=== PATIENT | male | born 1960 | race African-American/Black ===

== ENCOUNTER 2018-02-14 06:31 | Day surgery (SDC) | payer BC ==
[2018-02-13 13:35] VITALS: BMI 41.6
[2018-02-14] MEDS ORDERED: ROCURONIUM BROMIDE 50 MG/5 ML VIAL ONE (07:07)
[2018-02-14] MEDS ORDERED: DEXAMETHASONE SOD PHOSPHATE 4 MG/1 ML VIAL ONE (07:07)
[2018-02-14] MEDS ORDERED: LIDOCAINE HCL/PF 2% SDV 5ML VIAL ONE (07:07)
[2018-02-14] MEDS ORDERED: PROPOFOL 20 ML ONE (07:07)
[2018-02-14] MEDS ORDERED: SUCCINYLCHOLINE CHLORIDE 200 MG/10 ML VIAL ONE (07:07)
[2018-02-14] MEDS ORDERED: DEXAMETHASONE SOD PHOSPHATE/PF 10 MG/ML SDV ONE (07:28)
[2018-02-14] MEDS ORDERED: BUPIVACAINE HCL/PF 0.5% (5MG/ML) 10 ML VIAL ONE ×2 (07:28→07:29)
[2018-02-14] MEDS ORDERED: MIDAZOLAM HCL 2 MG/2 ML SINGLE DOSE VIAL ONE ×3 (07:30→08:39)
--- NOTE | 2018-02-14 08:22 | HP ---
Satellite [facility] - Chief Complaint Chief Complaint: left shoulder pain, weakness History of Present Illness: left shoulder impingement, RTC tear History Source: Patient Limitations to Obtaining History: No Limitations - Past Medical History Allergies/Adverse Reactions: Allergies Allergy/AdvReac Type Severity Reaction Status Date / Time shellfish derived Allergy Intermediate Rash Verified 02/14/18 06:51 Iodinated Contrast- Oral and Allergy Verified 02/14/18 06:51 IV Dye [Iodinated Contrast Media - IV Dye] - Current Medications Current Medications: Home Medications Medication Instructions Recorded Aspirin [Aspirin EC] 81 mg PO DAILY 02/13/18 Ezetimibe [Zetia] 10 mg PO HS 02/13/18 Famotidine [Pepcid] 40 mg PO DAILY 02/13/18 Hydrochlorothiazide [Hctz -] 12.5 mg PO DAILY 02/13/18 Metronidazole 250 mg PO DAILY 02/13/18 Nebivolol HCl [Bystolic] 10 mg PO DAILY 02/13/18 Olmesartan Medoxomil [Benicar] 20 mg PO DAILY 02/13/18 Rosuvastatin [Crestor -] 40 mg PO HS 02/13/18 Tamsulosin HCl [Flomax] 0.4 mg PO HS 02/13/18 Satellite Physical Exam - Physical Examination Vital Signs: Vital Signs Period Temp Pulse Resp BP Sys/Jensen Pulse Ox Last 24 Hr 98.2 F 77 18 127/77 95 General Appearance: Well Nourished ENT: Clear Lung: Clear to auscultation Heart: Regular rate & rhythm Breasts: Soft Abdomen: Soft Extremities: No edema Satellite Impression/Plan - Impression/Plan Impression: left shoulder impingement syndrome, RTC tear Operative Procedure: left shoulder arthroscopy, decompression, RTC repair Date to be Performed: 02/14/18
[2018-02-14] MEDS ORDERED: ceFAZolin SODIUM 1 GM VIAL ONE (08:34)
[2018-02-14] MEDS ORDERED: ceFAZolin SODIUM 1 GM VIAL IVPB ONE (08:36)
[2018-02-14] MEDS ORDERED: LABETALOL HCL 5 MG/1 ML (100MG/20 ML VIAL) ONE (09:10)
[2018-02-14] MEDS ORDERED: hydrALAZINE HCL 20 MG/ML VIAL ONE (09:29)
--- NOTE | 2018-02-14 10:10 | OP ---
Operative Note - Note: Operative Date: 02/14/18 Pre-Operative Diagnosis: left shoulder impingement syndrome, RTC tear Operation: left shoulder arthroscopy, subacromial decompression, distal clavicle excision, arthroscopic RTC repair Implants: 2 x Arthrex Swivel Lock anchors, Fiber wire x 5 Surgeon: Bryson Becerra Slagger: Nish Gan Anesthesiologist/SCOURING TRAIN OPERATOR CHIEF: Angie Carroll Anesthesia: Local, MAC Specimens Removed: shavings Estimated Blood Loss (mls): 50 Drains, Volume Out (mls): 0 Blood Volume Replaced (mls): 0 Fluid Volume Replaced (mls): 1,000 Operative Report Dictated: Yes
[2018-02-14] MEDS ORDERED: ONDANSETRON 4 MG/2 ML VIAL IVPUSH PRN (10:13)
[2018-02-14] MEDS ORDERED: oxyCODONE HCL 5 MG TABLET PO PRN (10:13)
[2018-02-14] MEDS ORDERED: LACTATED RINGERS SOLUTION 1,000 ML IV SCH (10:15)
[2018-02-14 11:23] VITALS: TEMP 98.4
--- NOTE | 2018-02-14 12:52 | OP ---
DATE OF OPERATION: 02/14/2018 PREOPERATIVE DIAGNOSIS: Left shoulder subacromial impingement and rotator cuff tear. POSTOPERATIVE DIAGNOSIS: Left shoulder subacromial impingement and rotator cuff tear. PROCEDURE: Left shoulder arthroscopy, subacromial decompression, and arthroscopic rotator cuff repair. SURGEON: Bryson Becerra MD HOME VISITS NURSE: JANET Bruno DELINQUENT TAX COLLECTOR: Angie Perkins CRNA ANESTHESIA: Left interscalene block and MAC anesthesia. DRAINS: None. COMPLICATIONS: None. BLOOD LOSS: Minimal. BLOOD GIVEN: None. FLUID REPLACEMENT: 1000 mL. SPECIMENS: Arthroscopic shavings. DESCRIPTION OF PROCEDURE: The patient is a 57-year-old male with a preoperative diagnosis of left shoulder impingement syndrome and a rotator cuff tear. After understanding the potential risks, complications, alternatives, and benefits of surgery versus nonsurgical treatment, the patient elected to undergo this procedure. The patient was brought into the operating room, peripheral IV placed, and IV sedation given. Two grams of IV Ancef were given, and a left interscalene block was performed. MAC anesthesia was induced. He was placed in the beach-chair position with ample padding throughout. The left upper extremity was prepped and draped in sterile fashion. The bony landmarks were marked out with a marking pen, and posterior portal was established. A diagnostic glenohumeral arthroscopy was performed. Everything inside the joint looked good. There is suggestion of a complete supraspinatus insertional rotator cuff tear, but it could not be well visualized from the joint side. Every other structure including humeral head, the biceps tendon at the labrum, and the glenoid all looked good. Next, our attention was turned to the subacromial space. Patient had a tremendous amount of inflammatory bursitis. The lateral portal was established under direct visualization using a spinal needle. A Green cannula was introduced into the space. An ArthroCare Wand was used to do a soft tissue bursectomy. After this extensive debridement, a very large subacromial spur and a moderate-sized subclavicular spur were identified. They were taken down with a 5.5 mm oval linda and then fine-tuned in reverse with the shaver to remove all debris. The arm was put through a full range of motion. There were no points of impingement. Overall, the bony decompression was quite adequate. Next, our attention turned to the top surface of the rotator cuff. The arm was put into position of mild abduction and external rotation, and then, a crescent-shaped supraspinatus insertional rotator cuff tear was identified. The edges were cleaned up with a shaver and then an ArthroCare Wand. The landing bed was cleaned up also with the ArthroCare Wand and the shaver. Synovitis was removed. Under direct visualization the arthroscopic rotator cuff repair was performed. A total of 5 FiberWires were placed through the rotator cuff, 3 through an anterior SwiveLock, 2 through a posterior SwiveLock, and both SwiveLocks were placed down into the humeral head. It all came down quite nicely. Now, there was complete coverage of the humeral and it moved as a unit. All instrumentation was removed. Excess saline and debris removed. The arthroscopy portals were closed with 3-0 nylon sutures. The area was then washed and dried, covered with Aquacel dressing and placed into a shoulder immobilizer. Total operative repair was about 1 hour. There were no complications during the case. Patient tolerated the procedure quite well and was brought to the ambulatory recovery room in stable condition. Jocelyn [id number]
[2018-02-14 14:15] VITALS: BP 105/62; PULSE 104
--- NOTE | 2018-02-15 12:53 | PATH ---
Surgical Pathology Report Patient Name: HODAN ROGERS Med. Rec. #: [id number] /Age/Gender: 1960 (Age: 57) / M Account: [id number] Location: [facility] Taken: 02/14/2018 Received: 02/14/2018 Reported: 02/15/2018 Physicians: Bryson Becerra M.D. Specimen(s) Received LEFT SHOULDER SHAVINGS Clinical History Left shoulder tear Final Diagnosis SHOULDER SHAVINGS, LEFT, ARTHROSCOPY: FRAGMENTS OF BENIGN CARTILAGE, DENSE FIBROCONNECTIVE TISSUE, ADIPOSE TISSUE, BONE, AND SKELETAL MUSCLE. Electronically Signed Iveth Roque M.D. Gross Description Received in formalin, labeled "left shoulder shavings," is a 6.5 x 6.0 x 1.0 cm. aggregate of arriaga-red soft tissue fragments admixed with abundant blood clot. A pharmacy sales representative portion is submitted in one cassette. /02/14/2018 saudi/02/14/2018
== END 2018-02-14 14:05 | disposition home or self-care (01) ==
LOC: JASU-SURG 06:31
PROVIDERS: ATTEND Orthopaedic Surgery
PROC: 0LQ24ZZ Repair Left Shoulder Tendon, Percutaneous Endoscopic Approach (ICD-10-PCS; principal; 2018-02-14 08:00)
PROC: 0RNK4ZZ Release Left Shoulder Joint, Percutaneous Endoscopic Approach (ICD-10-PCS; 2018-02-14 08:00)
DX: M75.42 Impingement syndrome of left shoulder (principal); M75.102 Unspecified rotator cuff tear or rupture of left shoulder, not specified as traumatic
CPT/HCPCS: 88304-TC; 94760

== ENCOUNTER 2019-11-06 04:48 | Day surgery (SDC) | payer BC, OTHER ==
[2019-11-05 10:39] VITALS: BMI 42.5
--- NOTE | 2019-11-06 12:17 | HP ---
Satellite [facility] - Chief Complaint Chief Complaint: left knee pain - Past Medical History Allergies/Adverse Reactions: Allergies Allergy/AdvReac Type Severity Reaction Status Date / Time shellfish derived Allergy Intermediate Rash Verified 11/05/19 10:40 Iodinated Contrast Media Allergy Verified 11/05/19 10:40 [Iodinated Contrast Media - IV Dye] - Current Medications Current Medications: Home Medications Medication Instructions Recorded Aspirin [Aspirin EC] 81 mg PO DAILY 02/13/18 Ezetimibe [Zetia] 10 mg PO HS 02/13/18 Hydrochlorothiazide [Hctz -] 12.5 mg PO DAILY 02/13/18 Nebivolol HCl [Bystolic] 10 mg PO DAILY 02/13/18 Olmesartan Medoxomil [Benicar] 20 mg PO DAILY 02/13/18 Rosuvastatin [Crestor -] 40 mg PO HS 02/13/18 Tamsulosin HCl [Flomax] 0.4 mg PO HS 02/13/18 Oxycodone HCl/Acetaminophen 1 tab PO Q6H #12 tablet MDD 4 11/06/19 [Percocet 5-325 mg Tablet] Satellite Physical Exam - Physical Examination General Appearance: Well Nourished, Well Developed, Alert & Oriented x3 ENT: Clear Lung: Normal air movement Extremities: Other (left knee- + swelling, + ttp, decr rom, +mcmurrays, nvi) Neurological: Intact, Alert, Oriented Satellite Impression/Plan - Impression/Plan Impression: left knee internal derangement Operative Procedure: left knee arthroscopy Date to be Performed: 11/06/19
[2019-11-06] MEDS ORDERED: LIDOCAINE 1%/EPI 1:100000 (20 ML MULTI DOSE VIAL) ONE (13:19)
[2019-11-06] MEDS ORDERED: MIDAZOLAM HCL 2 MG/2 ML SINGLE DOSE VIAL ONE (14:07)
[2019-11-06] MEDS ORDERED: LIDOCAINE HCL/PF 2% SDV 5ML VIAL ONE (14:07)
[2019-11-06] MEDS ORDERED: PROPOFOL 20 ML ONE ×2 (14:07)
[2019-11-06] MEDS ORDERED: ONDANSETRON 4 MG/2 ML VIAL IVPUSH PRN (14:12)
[2019-11-06] MEDS ORDERED: oxyCODONE HCL 5 MG TABLET PO PRN (14:12)
[2019-11-06] MEDS ORDERED: ACETAMINOPHEN 1000 MG/100 ML VIAL (NON FORMULARY) IVPB ONE (14:13)
[2019-11-06] MEDS ORDERED: LACTATED RINGERS SOLUTION 1,000 ML IV SCH (14:15)
[2019-11-06] MEDS ORDERED: BUPIVACAINE HCL/PF 0.5% (5MG/ML) 10 ML VIAL NR ONE ×3 (14:38)
[2019-11-06] MEDS ORDERED: LIDOCAINE 1%/EPI 1:100000 (20 ML MULTI DOSE VIAL) IJ ONE ×2 (14:38)
[2019-11-06] MEDS ORDERED: KETOROLAC TROMETHAMINE 30 MG/1 ML VIAL ONE (14:43)
--- NOTE | 2019-11-06 15:22 | OP ---
Operative Note - Note: Operative Date: 11/06/19 Pre-Operative Diagnosis: INTERNAL DERANGEMENT LEFT KNEE Operation: LEFT KNEE ARTHROSCOPY WITH PARTIAL MM Post-Operative Diagnosis: Same as Pre-op Surgeon: Ad Temple Anesthesia: General Estimated Blood Loss (mls): 0 Operative Report Dictated: Yes
[2019-11-06 17:56] VITALS: BP 125/67; PULSE 72; TEMP 97.5
--- NOTE | 2019-11-07 14:14 | SPEC ---
DATE OF OPERATION: 11/06/2019 PREOPERATIVE DIAGNOSIS: Internal derangement, left knee. POSTOPERATIVE DIAGNOSIS: Internal derangement, left knee. PROCEDURE: Left knee arthroscopy, partial medial meniscectomy. SURGICAL ATTENDING: Ad Temple MD RECREATION THERAPY TEACHER: No office assistant. ANESTHESIA: General with LMA. CLOSURE: 4-0 nylon. COMPLICATIONS: None. CONDITION: To recovery room in stable condition. DESCRIPTION OF OPERATIVE PROCEDURE: Patient was taken to the operating room on November 06, 2019. General anesthesia with LMA was administered by the anesthesiologist. The left lower extremity was prepped and draped in the usual sterile fashion. The medial and lateral infrapatellar portal sites were infiltrated with 1% Xylocaine with epinephrine. Both portals were then made with a 15 blade followed by a blunt trocar. The scope was placed in the lateral infrapatellar portal and up into the suprapatellar pouch. The knee was inflated with a cocktail of 10 mL of 1% Xylocaine, 10 mL of 0.5% Marcaine, and 20 mL of arthroscopic saline. This was allowed to sit in the knee for a few minutes to allow the anesthetic to work intraarticularly. The scope was placed in the lateral infrapatellar portal and up into the suprapatellar pouch. The pouch was visualized to be clean. The medial and lateral gutters were visualized to be clean. The undersurface of the patella and trochlea were visualized to be intact. With valgus stress on the knee, the medial compartment was entered. The medial meniscus was visualized, probed, and found to have a complex tear of the posterior horn. This was debrided back to smooth stable meniscal tissue using a meniscal biter and arthroscopic shaver. The medial femoral condyle was run and found to be intact as well as the medial tibial plateau. At 90 degrees, the ACL was visualized, probed, and found to be intact. In the figure 4 position, the lateral compartment was entered. The lateral meniscus was visualized, probed, and found to be intact. The lateral femoral condyle was run and found to be intact as was the lateral tibial plateau. The knee was irrigated with copious amounts of irrigation and then the fluid was drained. The inferomedial portal was closed then with 4-0 nylon. Prior to pulling the trocar from the lateral infrapatellar portal, 20 mL of 0.5% Marcaine was infused into the knee for postoperative analgesia. The trocar was then pulled and the incision was closed with 4-0 nylon suture. A sterile pressure dressing was applied. Patient awakened from anesthesia and transferred to recovery in stable condition. No complication. Estimated blood loss negligible. AD TEMPLE M.D. [id number]
--- NOTE | 2019-11-08 17:19 | PATH ---
Surgical Pathology Report Patient Name: HODAN ROGERS Med. Rec. #: [id number] /Age/Gender: 1960 (Age: 58) / M Account: [id number] Location: [facility] Taken: 11/06/2019 Received: 11/07/2019 Reported: 11/08/2019 Physicians: Ad Temple M.D. Specimen(s) Received LEFT KNEE SHAVINGS Clinical History Left knee internal derangement Final Diagnosis KNEE SHAVINGS, LEFT, ARTHROSCOPY: FRAGMENTS OF CARTILAGE, DENSE FIBROCONNECTIVE TISSUE, ADIPOSE TISSUE, AND REACTIVE SYNOVIUM. Electronically Signed Iveth Roque M.D. Gross Description Received in formalin, labeled "left knee shavings," is a 4.0 x 3.0 x 0.3 cm. aggregate of arriaga-yellow soft tissue fragments admixed with blood clot. A logistics service representative portion is submitted in one cassette. /11/07/2019 saudi/11/07/2019
== END 2019-11-06 18:05 | disposition home or self-care (01) ==
LOC: JASU-SURG 04:48
PROVIDERS: ATTEND Orthopaedic Surgery
PROC: 0SBD4ZZ Excision of Left Knee Joint, Percutaneous Endoscopic Approach (ICD-10-PCS; principal; 2019-11-06 14:30)
DX: M23.222 Derangement of posterior horn of medial meniscus due to old tear or injury, left knee (principal); E66.01 Morbid (severe) obesity due to excess calories; I10 Essential (primary) hypertension; G47.30 Sleep apnea, unspecified
CPT/HCPCS: 88304-TC; 94760